=== PATIENT | female | born 1965 | race African-American/Black ===

== ENCOUNTER 2018-02-03 11:10 | Emergency (ER) | payer OTHER ==
[~2018-02-03] VITALS: Ht 162.6 cm; Wt 83.0 kg
[2018-02-03 11:12] VITALS: PULSE 106; TEMP 36.7; Ht 162.6 cm; Wt 83.0 kg
[2018-02-03] MEDS ORDERED: ALBUT/IPRATROP 3MG/0.5MG NEB 3 ML VIAL INH ONE (11:30)
[2018-02-03] MEDS ORDERED: HYDR25TA4 PO (11:33)
[2018-02-03] MEDS ORDERED: LISI-729 PO (11:33)
--- NOTE | 2018-02-03 11:57 | DIAGNOSTIC IMAGING REPORT ---
CHEST 2 VIEWS ROUTINE CLINICAL HISTORY: Cough COMPARISON STUDY: No previous studies for comparison. FINDINGS: The bones soft tissues and hemidiaphragms are normal. The cardiomediastinal silhouette is normal. The lungs are clear. The pulmonary vasculature is normal. IMPRESSION: Negative chest. The above report was generated using voice recognition software. It may contain grammatical, syntax or spelling errors. Electronically signed by: Cristian Taylor M.D. 02/03/2018 11:55 AM Dictated Date/Time: 02/03/2018 11:55 AM
[2018-02-03] MEDS ORDERED: VNTHFA/IN INH (13:56)
[2018-02-03] MEDS ORDERED: ALBUTEROL HFA 8 GM INHALER INH ONE (14:00)
[2018-02-03 14:57] VITALS: BP 114/94; O2SAT 97
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
== END 2018-02-03 15:05 | disposition home or self-care (01) ==
LOC: C.EDB 11:12 → C.EDA 15:05
DX: R05 Cough (principal); J45.909 Unspecified asthma, uncomplicated; F32.9 Major depressive disorder, single episode, unspecified; Z79.899 Other long term (current) drug therapy

== ENCOUNTER 2018-06-27 02:53 | Emergency (ER) | payer OTHER ==
[~2018-06-27] VITALS: Ht 162.6 cm; Wt 87.4 kg
[~2018-06-27 02:53] MED LIST: HYDR25TA4 PO; LISI-729 PO
[2018-06-27 03:00] VITALS: TEMP 36.7; Ht 162.6 cm; Wt 87.4 kg
[2018-06-27] MEDS ORDERED: DiphenhydrAMINE HCL 50 MG/ML VIAL IV STA (03:25)
[2018-06-27] MEDS ORDERED: KETOROLAC TROMETHAMINE 30 MG/ML VIAL IV STA (03:25)
[2018-06-27] MEDS ORDERED: DEXAMETHASONE **PF** INJ 10 MG/ML VIAL IV ONE (03:30)
[2018-06-27] MEDS ORDERED: ALBUT/IPRATROP 3MG/0.5MG NEB 3 ML VIAL INH STA (03:37)
[2018-06-27 03:56] VITALS: O2SAT 98
[2018-06-27 03:58] LABS: BASO % 0.2 %; BASO ABS # 0.01 K/uL (0-0.2); EOS % 2.7 %; EOS ABS # 0.18 K/uL (0-0.5); HEMATOCRIT 37.3 % (37-47); HEMOGLOBIN 12.6 g/dL (12.0-16.0); IG# 0.01 K/uL (0.00-0.02); LYMPH % 32.4 %; LYMPH ABS # 2.13 K/uL (1.2-3.4); MEAN CELL VOLUME 85.4 fL (80-100); MEAN CORPUSCULAR HEMOGLOBIN 28.8 pg (25-34); MEAN CORPUSCULAR HGB CONC 33.8 g/dl (32-36); MONO % 4.9 %; MONO ABS # 0.32 K/uL (0.11-0.59); NEUT % 59.6 %; NEUT ABS # 3.92 K/uL (1.4-6.5); PLATELET COUNT 137 K/uL (130-400); RED CELL DISTRIBUTION WIDTH CV 13.5 % (11.5-14.5); RED CELL DISTRIBUTION WIDTH SD 41.9 fL (36.4-46.3); WHITE BLOOD COUNT 6.57 K/uL (4.8-10.8)
[2018-06-27 04:26] LABS: ALBUMIN 3.7 gm/dl (3.4-5.0); ALKALINE PHOSPHATASE 73 U/L (45-117); ALT/SGPT 27 U/L (12-78); AST/SGOT 15 U/L (15-37); BLOOD UREA NITROGEN 12 mg/dl (7-18); CALCIUM 8.3 mg/dl (8.5-10.1); CARBON DIOXIDE 29 mmol/L (21-32); CREATININE 0.79 mg/dl (0.60-1.20); GLUCOSE 95 mg/dl (70-99); POTASSIUM 3.5 mmol/L (3.5-5.1); SODIUM 141 mmol/L (136-145); TOTAL PROTEIN 6.8 gm/dl (6.4-8.2)
--- NOTE | 2018-06-27 05:33 | EMERGENCY ROOM VISIT NOTE ---
History First contact with patient: 02:59 Chief Complaint: LEG PAIN,LEG INJURY Stated Complaint: LEG PAIN History of Present Illness The patient is a 52 year old female who presents to the Emergency Room with complaints of severe ongoing left leg pain for the past several months that is worse with ambulation and better with rest currently 9 out of 10. Patient states the whole leg hurts. She feels like it is swollen. Patient also has a cough and wheezing who has COPD. She is requesting a nebulizer. Patient denies fall, trauma, chest pain, abdominal pain, fevers, productive cough, low back pain, loss of bowel bladder control, saddle anesthesia, IV drug abuse. Patient is tolerating p.o. fluids and food. Normal bowel movement. Patient is traveling from another part of [place] to here to start a new job. Review of Systems An 10 system review of systems was completed with positives and pertinent negatives listed in the HPI. Past Medical/Surgical History COPD, chronic leg pain Social History Smoking Status: Current Some Day Smoker Alcohol Use: none Drug Use: none Marital Status: single Housing Status: other Current/Historical Medications Scheduled Hydrochlorothiazide (Hctz), 25 MG PO DAILY Lisinopril (Zestril), 5 MG PO DAILY Physical Exam Vital Signs Date Time Temp Pulse Resp B/P (MAP) Pulse Ox O2 Delivery O2 Flow Rate FiO2 06/27/18 05:18 88 16 117/75 96 Room Air 06/27/18 04:28 93 06/27/18 03:56 98 Room Air 06/27/18 03:56 80 18 133/88 98 Room Air 06/27/18 03:56 98 Room Air 06/27/18 03:00 36.7 88 15 124/82 98 Room Air Physical Exam VITALS: Vitals are noted on the nurse's note and reviewed by myself. Vital signs stable. GENERAL: -Mongolian female argumentative and requesting pain meds, in no acute distress, nondiaphoretic, well-developed well-nourished. SKIN: The skin was without rashes, erythema, edema, or bruising. There is no tenting of the skin. Capillary reflex less than 2 seconds. HEAD: Normocephalic atraumatic. EARS: External auditory canals clear, tympanic membranes pearly noble without erythema or effusion bilaterally. EYES: Pupils equal round and reactive to light and accommodation. Conjunctivae without injection, sclerae without icterus. Extraocular movements intact. NOSE: Patent, turbinates without inflammation or discharge. MOUTH: Mucous membranes moist. Pharynx without erythema or exudate. Uvula midline. Airway patent. Tongue does not deviate. NECK: Supple without nuchal rigidity. No lymphadenopathy. No thyromegaly. Cervical spine is nontender. No JVD. HEART: Regular rate and rhythm without murmurs gallops or rubs. LUNGS: Mild diffuse end expiratory wheezes, without rales or rhonchi. No retractions or accessory muscle use. ABDOMEN: Positive bowel sounds x 4. Normal tympanic percussion. Soft, nontender, without masses or organomegaly. Watt sign negative. No guarding or rebound tenderness. No CVA tenderness MUSCULOSKELETAL: No muscle atrophy, erythema, or edema noted. No thoracic or lumbar tenderness. Positive straight leg raise on the left. Negative on the right. Patient can plantarflex and dorsiflex without difficulty. Bilateral legs nontender to palpation. NEURO: Patient was alert and oriented to person place and time. Normal sensation to light and sharp touch. No focal neurological deficits. Medical Decision & Procedures Laboratory Results 06/27/18 03:45 Red Blood Count 4.37, Mean Corpuscular Volume 85.4, Mean Corpuscular Hemoglobin 28.8, Mean Corpuscular Hemoglobin Concent 33.8, Mean Platelet Volume 12.0, Neutrophils (%) (Auto) 59.6, Lymphocytes (%) (Auto) 32.4, Monocytes (%) (Auto) 4.9, Eosinophils (%) (Auto) 2.7, Basophils (%) (Auto) 0.2, Neutrophils # (Auto) 3.92, Lymphocytes # (Auto) 2.13, Monocytes # (Auto) 0.32, Eosinophils # (Auto) 0.18, Basophils # (Auto) 0.01 06/27/18 03:45 Test 06/27/18 03:45 White Blood Count 6.57 K/uL (4.8-10.8) Red Blood Count 4.37 M/uL (4.2-5.4) Hemoglobin 12.6 g/dL (12.0-16.0) Hematocrit 37.3 % (37-47) Mean Corpuscular Volume 85.4 fL (80-100) Mean Corpuscular Hemoglobin 28.8 pg (25-34) Mean Corpuscular Hemoglobin Concent 33.8 g/dl (32-36) Platelet Count 137 K/uL (130-400) Mean Platelet Volume 12.0 fL (7.4-10.4) Neutrophils (%) (Auto) 59.6 % Lymphocytes (%) (Auto) 32.4 % Monocytes (%) (Auto) 4.9 % Eosinophils (%) (Auto) 2.7 % Basophils (%) (Auto) 0.2 % Neutrophils # (Auto) 3.92 K/uL (1.4-6.5) Lymphocytes # (Auto) 2.13 K/uL (1.2-3.4) Monocytes # (Auto) 0.32 K/uL (0.11-0.59) Eosinophils # (Auto) 0.18 K/uL (0-0.5) Basophils # (Auto) 0.01 K/uL (0-0.2) RDW Standard Deviation 41.9 fL (36.4-46.3) RDW Coefficient of Variation 13.5 % (11.5-14.5) Immature Granulocyte % (Auto) 0.2 % Immature Granulocyte # (Auto) 0.01 K/uL (0.00-0.02) Anion Gap 7.0 mmol/L (3-11) Est Creatinine Clear Calc Drug Dose 88.1 ml/min Estimated GFR () 99.1 Estimated GFR (Non- 85.5 BUN/Creatinine Ratio 14.8 (10-20) Calcium Level 8.3 mg/dl (8.5-10.1) Total Bilirubin 0.4 mg/dl (0.2-1) Direct Bilirubin 0.1 mg/dl (0-0.2) Aspartate Amino Transf (AST/SGOT) 15 U/L (15-37) Alanine Aminotransferase (ALT/SGPT) 27 U/L (12-78) Alkaline Phosphatase 73 U/L (45-117) Total Creatine Kinase 85 U/L (26-192) Troponin I < 0.015 ng/ml (0-0.045) Total Protein 6.8 gm/dl (6.4-8.2) Albumin 3.7 gm/dl (3.4-5.0) Medications Administered Medications (Trade) Dose Ordered Sig/Rand Route Start Time Stop Time Status Last Admin Dose Admin Ketorolac Tromethamine (Toradol Inj) 10 mg NOW STAT IV 06/27/18 03:25 06/27/18 03:29 DC 06/27/18 03:56 10 MG Diphenhydramine HCl (Benadryl Inj) 25 mg NOW STAT IV 06/27/18 03:25 06/27/18 03:29 DC 06/27/18 03:56 25 MG Dexamethasone Sodium Phosphate (Dexamethasone Inj Pf) 10 mg NOW ONCE IV 06/27/18 03:30 06/27/18 03:31 DC 06/27/18 03:56 10 MG Albuterol/ Ipratropium (Duoneb) 3 ml NOW STAT INH 06/27/18 03:37 06/27/18 03:38 DC 06/27/18 03:56 3 ML ED Course Prior records/ancillary studies reviewed. Triage Nursing notes reviewed. Additional history obtained from EMS The patient's history was concerning for wheezing with severe left leg pain that has been ongoing for several months. Differential diagnosis: Etiologies such as COPD exacerbation, pneumonia, pulmonary issue, drug-seeking behavior, musculoskeletal, disc herniation, fracture, aortic disease, metastatic disease, cord compression, discitis, infection, renal colic, gastrointestinal, acute exacerbation of chronic back pain, sciatica, cauda equina, as well as others were entertained. Physical findings: As above. No focal neurologic findings noted. ER treatment provided: Nebulizer, Toradol, Decadron On reassessment the patient felt better. Diagnostics interpreted by me: EKG: Indication dyspnea: Normal sinus, normal intervals, no acute ST-T wave changes. Impression normal sinus rhythm interpreted by myself I think arrhythmia is unlikely. EKG shows normal sinus rhythm with no interval abnormalities such as QT prolongation or WPW. There are no findings to suggest Brugada syndrome. Cardiac monitoring in the emergency department reveals no tachycardic or bradycardic dysrhythmia. Hypertrophic cardiomyopathy was considered but there are no clear historical elements pointing toward this. EKG is not suggestive. The QRS voltage is not extremely large and there are no suggestive Q waves. The labs revealed no worrisome leukocytosis or electrolyte abnormality. Imaging studies: US VENOUS LEFT LOWER EXTREMITY: No evidence of deep venous thrombosis. Fluid in region of knee joint may represent effusion. Radiologist: Joel Reynoso M.D. CT L SPINE: No priors. No acute fracture. Mild grade 1 anterolisthesis L4 on L5 which appears degenerative. Multilevel degenerative changes. Mild convex to the right curvature of the spine. Degenerative changes by CT appear most prominent at L4-L5. There is moderate to severe neural foraminal stenosis suspected at this level. There is also some central canal stenosis at this level suspected secondary to degenerative changes and ligamentum flavum hypertrophy. More mild degenerative changes at other levels. MRI more sensitive for evaluation of discs/soft tissues and could be obtained, as indicated. Radiologist: Joel Reynoso M.D. Study ready at 04:26 and initial results transmitted at 05:01 Chest x-ray with no acute consolidation, pneumothorax or free of my interpretation. This appears to be consistent with lumbar radiculopathy with her known COPD. Patient was neurovascularly and neurologically intact. Symptoms been ongoing for several months now. Patient is new to the area. She just moved here. Patient was in pain and came to the ER in search for pain medication. Patient requested pain meds and nothing else. I informed her I do not feel comfortable giving her pain meds without doing further testing. Patient finally was agreeable to further workup. This was initiated. Patient was given a list of family care doctor is advised to follow-up. She was counseled on chronic pain treatment and verbalized understanding this. She is advised to return to the ER immediately for severe pain, inability to walk, fevers, worsening signs or symptoms or as needed. Patient ambulated out of the ER. The patient's physical examination and detailed history did not reveal any red flags for back pain such as those listed in the differential diagnosis. Therefore advanced diagnostics and consultations were felt to be unwarranted. Patient was informed to contact her Medicaid office to see what Medicaid doctor she can see in this area. This was done by case management. By the evaluation outlined above emergent etiologies such as fracture, aortic disease, metastatic disease, infection, renal colic, gastrointestinal, cord compression, cauda equina, as well as others were deemed relatively unlikely. The pt informed about the findings as listed above. All questions were answered and pleased with the treatment. Return instructions were outlined and the patient was discharged in stable condition. Outpatient prescription management: Medrol Dosepak Referral: The patient was referred back to primary care physician for follow-up in 2 to 3 days for a recheck of the current condition. Case reviewed with my attending The chart was completed utilizing [employer] Speech voice recognition software. Grammatical errors, random word insertions, pronoun errors, and incomplete sentences are an occassional consequence of this system due to software limitations, ambient noise, and hardware issues. Any formal questions or concerns about the content, text, or information contained within the body of this dictation should be directly addressed to the physician economic research assistant for clarification. Medical Decision As above [place] Drug Monitoring Program Search Results: patient reviewed within database, no issues identified Medication Reconcilliation Current Medication List: was personally reviewed by me Blood Pressure Screening Patient's blood pressure: Normal blood pressure Impression Primary Impression: Lumbar radiculopathy Additional Impression: COPD (chronic obstructive pulmonary disease) Departure Information Dispostion Home / Self-Care Condition GOOD Referrals No Doctor, Assigned (PCP) Patient Instructions My [facility] Additional Instructions DO NOT drive, drink alcohol, operate machinery, or perform dangerous activities today. You were given medications in the ER that can affect your ability to safely function or operate a vehicle. Medrol Dosepak as directed Recommend yoga and/or Pilates for back pain to help strengthen uo your core. Recommend physical therapy to help strengthen up your core. Recommend a healthy weight. Ibuprofen(Motrin, Advil) may be used for fever or pain. Use 600mg every six hours as needed. Take with food. Avoid using more than 2400mg in a 24 hour period. Do not use 2400mg per day for more than three consecutive days without physician direction. Prolonged inappropriate use can lead to stomach upset or ulcers. This medication can be taken if you need to drive, work, or perform activities which may be dangerous when taking narcotic pain medication. (AND/OR) Acetaminophen(Tylenol) may be used for fever or pain. Use 1000mg every six hours as needed. Avoid using more than 3000mg in a 24 hour period. This medication can be taken if you need to drive, work, or perform activities which may be dangerous when taking narcotic pain medication. Rest and avoid heavy lifting until your symptoms resolve and then gradually return to full activity. A good rule of thumb is if it hurts your back/leg to perform a certain activity, then it should be avoided until you are healthy again. A heating pad, warm compresses, or a hot shower may help with tight muscles and can be done several times a day as needed. Continue current medications. Return to the ER immediately for any numbness, tingling, severe pain, loss of control of your bowels or bladder, inability to walk, or as needed. Follow up with your primary care physician within 3-5 days for a recheck of your current condition. Problem Qualifiers
[2018-06-27] MEDS ORDERED: METH4PAK PO (05:34)
--- NOTE | 2018-06-27 05:34 | EMERGENCY ROOM VISIT NOTE ---
ED Visit Note First contact with patient: 02:59 I have personally evaluated and examined this patient. I agree with assessment and plan of Yari Harrison PA-C. Multiple vague complaints after having just gotten off bus and came directly to ED for evaluation. These have been ongoing for months and include bilateral leg pain. She was sleeping on my initial evaluation and when I noted that we would start her on steroids she asked if there was another ED in town. I stressed she set up PCP as she states [place] friends.
[2018-06-27 05:47] VITALS: BP 109/72; PULSE 87; O2SAT 96
--- NOTE | 2018-06-27 06:26 | DIAGNOSTIC IMAGING REPORT ---
ULTRASOUND L VENOUS DOPP LOWER EXT UNILAT CLINICAL HISTORY: Left leg pain and swelling COMPARISON STUDY: No previous studies for comparison. FINDINGS: Real-time and color flow Doppler imaging were performed. Flow was seen within the femoral, popliteal and calf veins with no intraluminal thrombus demonstrated. The saphenous vein is patent. There is a probable left knee joint effusion. IMPRESSION: No evidence of left lower extremity DVT. Electronically signed by: Crispin Manuel M.D. 06/27/2018 6:25 AM Dictated Date/Time: 06/27/2018 6:25 AM
--- NOTE | 2018-06-27 06:39 | DIAGNOSTIC IMAGING REPORT ---
CHEST ONE VIEW PORTABLE CLINICAL HISTORY: wheezing dyspnea COMPARISON STUDY: 02/03/2018 FINDINGS: The bones soft tissues and hemidiaphragms are normal. The cardiomediastinal silhouette is normal. The lungs are clear. The pulmonary vasculature is normal. IMPRESSION: Negative chest. The above report was generated using voice recognition software. It may contain grammatical, syntax or spelling errors. Electronically signed by: Cristian Taylor M.D. 06/27/2018 6:37 AM Dictated Date/Time: 06/27/2018 6:36 AM
--- NOTE | 2018-06-27 06:50 | DIAGNOSTIC IMAGING REPORT ---
LUMBAR SPINE WITHOUT CT DOSE: 835.61 mGy.cm HISTORY: Pain severe left leg pain TECHNIQUE: Multiaxial CT images of the lumbar spine were performed and reformatted in the sagittal and coronal plane without the use of contrast. A dose lowering technique was utilized adhering to the principles of ALARA. COMPARISON: None. FINDINGS: No fractures. No subluxation. Paraspinal soft tissues are unremarkable. Mild degenerative disc change throughout. Broad-based bulging disc L4-L5 and L5-S1 with moderate bilateral foraminal narrowing bilaterally. No major spinal stenosis. Moderate degenerative change of the posterior elements throughout. IMPRESSION: Moderate degenerative disc change with moderate bilateral foraminal stenosis at L4-L5 and L5-S1. The above report was generated using voice recognition software. It may contain grammatical, syntax or spelling errors. Electronically signed by: Cristian Taylor M.D. 06/27/2018 6:49 AM Dictated Date/Time: 06/27/2018 6:48 AM
== END 2018-06-27 05:47 | disposition home or self-care (01) ==
LOC: EDBD 02:53 → C.EDB 02:55
DX: M54.16 Radiculopathy, lumbar region (principal); J44.9 Chronic obstructive pulmonary disease, unspecified; G89.29 Other chronic pain; F17.200 Nicotine dependence, unspecified, uncomplicated